=== PATIENT | male | born 1970 | race Caucasian/White ===

== ENCOUNTER 2022-07-26 20:54 | Inpatient (IN) | payer BC ==
[~2022-07-26 20:54] MED LIST: Iopamidol-370 76% 500 ML MDV (1 ML CHARGE) ONE
[2022-07-26] MEDS ORDERED: Midazolam HCl 2 mg/2 ml Vial ONE (21:06)
[2022-07-26 21:07] LABS: Analyzer IN Cardio ER; Base Excess (BEa) -11.8 mEq/L (-2.0 to +3.0); CO2 Tension 35.9 mmHg (35.0-45.0); Calcium, Ionized (arterial) 1.16 mmol/L (1.12-1.30); Carboxyhemoglobin (COHb) 0.3 gm% (0.0-3.0); Hemoglobin (Hb) 16.1 g/dL (14.0-18.0); O2 Tension (PaO2), arterial 622.6 mmHg (80.0-100.0); Potassium - ABG Lab 3.58 mmol/L (3.70-5.30); pH, Arterial 7.23 (7.35-7.45)
[2022-07-26 21:12] LABS: Actual Bicarbonate (HCO3a) 14.8 mEq/L (22-28)
[2022-07-26 21:13] LABS: ALV-art Gradient 45.525 mmHg (0-20); Puncture Site RRA
[2022-07-26] MEDS ORDERED: Fentanyl CADD 100 ML IV SCH ×2 (21:15→22:30)
[2022-07-26 21:16] LABS: #Lymphocytes 2.5 thou/uL (1.20-3.40); #Neutrophils 7.9 thou/uL (1.40-6.50); %Basophils 0.2 % (0.0-1.0); %Eosinophils 0.1 % (0.0-10.0); %Lymphocytes 21.6 % (21.0-51.0); %Monocytes 8.5 % (0.0-10.0); %Neutrophils 69.5 % (42.0-75.0); Hemoglobin 15.3 g/dL (14.0-18.0); Mean Corpuscular HGB CONC 30.8 g/dL (32.0-36.0); Mean Corpuscular Hemoglobin 26.9 pg (27.0-31.0); Mean Corpuscular Volume 87.2 fl (78.0-98.0); Mean Platelet Volume 7.1 fL (7.4-10.4); Platelet Count 303 10x3/uL (130-400); RBC Distribution Width 12.6 % (11.5-14.5); Red Blood Cell (RBC) Count 5.69 mill/uL (4.70-6.10); White Blood Cell (WBC) Count 11.4 10x3/uL (4.8-10.8)
[2022-07-26 21:26] LABS: INR-International Normal Ratio 1.1; PTT 27.7 sec (22.9-36.1); Prothrombin Time 14.2 sec (12.0-14.7)
[2022-07-26] MEDS ORDERED: hydrALAZINE 20 MG/ML VIAL SLOW IVP PRN (21:26)
[2022-07-26] MEDS ORDERED: Dextrose 50% Abboject 50 ML SYRINGE SLOW IVP PRN (21:26)
[2022-07-26] MEDS ORDERED: Dextrose 5% in Water 1,000 ML IV PRN (21:26)
[2022-07-26] MEDS ORDERED: HumaLOG 300 UNITS/3 ML VIAL SC PRN ×2 (21:26)
[2022-07-26] MEDS ORDERED: Ondansetron PF 4 MG/2 ML Vial IVP PRN (21:26)
[2022-07-26] MEDS ORDERED: FENTANYL 50 MCG/ML 1 ML VIAL ONE (21:29)
[2022-07-26] MEDS ORDERED: Sodium Chloride 0.9% 1,000 ML IV SCH (21:30)
[2022-07-26] MEDS ORDERED: Propofol 1,000 MG/100 ML VIAL IV ONE (21:32)
[2022-07-26 21:33] LABS: ALT (SGPT) 16 U/L (8-55); AST (SGOT) 12 U/L (5-34); Acetaminophen Less than 10.0 mcg/mL (10.0-30.0); Albumin 4.7 g/dL (3.5-5.0); Alcohol 195 mg/dL (Less than 10); Alkaline Phosphatase 79 U/L (40-110); Anion Gap 21 mmol/L (10-20); BUN (Urea Nitrogen) 11 mg/dL (8.4-25.7); Bilirubin, Total 0.3 mg/dL (0.2-1.2); Calc. Creatinine Clearance 0 mL/min (70-130); Calcium 8.4 mg/dL (7.8-10.44); Carbon Dioxide 11 mmol/L (22-29); Chloride 106 mmol/L (98-107); Estimated GFR 97; Globulin 2.8 g/dL (2.4-3.5); Glucose 302 mg/dL (70-105); Lipase 24 U/L (8-78); Potassium 3.7 mmol/L (3.5-5.1); Protein, Total 7.5 g/dL (6.0-8.3); Salicylate Less than 8.0 mg/dL (15.0-30.0); Sodium 134 mmol/L (136-145)
[2022-07-26] MEDS ORDERED: Dexmedetomidine In 0.9 % NaCl 100 ML IVPB SCH (22:15)
[2022-07-26] MEDS ORDERED: FENTANYL 500 MCG/10 ML VIAL 2,000 MCG in Sodium Chloride 0.9% 60 ML IV PRN (22:15)
[2022-07-26 22:32] LABS: Bilirubin Negative (Negative); Blood, Urine Negative (Negative); Clarity Clear (Clear); Glucose, Urine (Dipstick) Greater than 1000 mg/dL (Negative); Ketone, Urine 40 mg/dL (Negative); Leukocyte Negative Leu/uL (Negative); Nitrite Negative (Negative); Protein, Urine (Dipstick) 20 mg/dL (Neg-Trace); Specific Gravity, Urine 1.013 (1.002-1.036); Urobilinogen Normal mg/dL (Less than 2)
[2022-07-26] MEDS ORDERED: TETANUS, DIPHTHERIA TOX,ADULT (TDVAX) 0.5 ML VIAL IM ONE (22:42)
[2022-07-26] MEDS ORDERED: CEFAZOLIN 1 GM in Sodium Chloride 0.9% 100 ML IVPB SCH (22:42)
[2022-07-26 23:18] VITALS: BMI 22.4
[2022-07-26 23:30] LABS: Actual Bicarbonate (HCO3a) 17.5 mEq/L (22-28); Base Excess (BEa) -4.6 mEq/L (-2.0 to +3.0); CO2 Tension 25.6 mmHg (35.0-45.0); Calcium, Ionized (arterial) 1.08 mmol/L (1.12-1.30); Carboxyhemoglobin (COHb) 0.9 gm% (0.0-3.0); Hemoglobin (Hb) 14.6 g/dL (14.0-18.0); O2 Tension (PaO2), arterial 131.6 mmHg (80.0-100.0); Potassium - ABG Lab 4.26 mmol/L (3.70-5.30); pH, Arterial 7.45 (7.35-7.45)
[2022-07-26 23:32] LABS: Puncture Site RBA
[2022-07-26] MEDS: Acetaminophen 500 MG TAB PO SCH (23:51)
[2022-07-26] MEDS: Lactated Ringer's 1,000 ML IV SCH (23:51)
[2022-07-27 00:28] LABS: Amphetamine Not Detected (NotDetected); Barbiturates Screen Not Detected (NotDetected); Benzodiazepine Screen Not Detected (NotDetected); Cocaine Metabolite Screen Not Detected (NotDetected); Methadone Not Detected (NotDetected); Methamphetamine Not Detected (NotDetected); Opiate Screen Not Detected (NotDetected); Oxycodone Screen Not Detected (NotDetected); Phencyclidine (PCP) Not Detected (NotDetected); THC/Cannabinoid Screen Not Detected (NotDetected); Tricyclic Screen Not Detected (NotDetected)
[2022-07-27 00:58] LABS: Glucose 133 mg/dL (70-105)
[2022-07-27 00:59] LABS: Lactic Acid 2.1 mmol/L (0.5-2.2)
[2022-07-27] MEDS ORDERED: Calcium Chloride 1 GM/10 ML Abboject SYRINGE IVP SCH (01:30)
[2022-07-27 03:34] LABS: #Lymphocytes 4.5 thou/uL (1.20-3.40); #Monocytes 0.9 thou/uL (0.11-0.59); #Neutrophils 5.7 thou/uL (1.40-6.50); %Basophils 0.3 % (0.0-1.0); %Eosinophils 0.3 % (0.0-10.0); %Lymphocytes 40.4 % (21.0-51.0); %Monocytes 7.6 % (0.0-10.0); %Neutrophils 51.3 % (42.0-75.0); Hemoglobin 12.5 g/dL (14.0-18.0); Mean Corpuscular HGB CONC 33.8 g/dL (32.0-36.0); Mean Corpuscular Hemoglobin 28.7 pg (27.0-31.0); Mean Corpuscular Volume 84.9 fl (78.0-98.0); Mean Platelet Volume 7.1 fL (7.4-10.4); Platelet Count 220 10x3/uL (130-400); RBC Distribution Width 12.6 % (11.5-14.5); Red Blood Cell (RBC) Count 4.36 mill/uL (4.70-6.10); White Blood Cell (WBC) Count 11.1 10x3/uL (4.8-10.8)
[2022-07-27 03:44] LABS: Phosphorus 3.8 mg/dL (2.3-4.7)
[2022-07-27 03:50] LABS: INR-International Normal Ratio 1.1; PTT 28.5 sec (22.9-36.1)
[2022-07-27 03:51] LABS: Lactic Acid 1.9 mmol/L (0.5-2.2)
[2022-07-27 03:56] LABS: Glucose 82 mg/dL (70-105); Magnesium 1.9 mg/dL (1.6-2.6)
[2022-07-27 03:58] LABS: Anion Gap 15 mmol/L (10-20); BUN (Urea Nitrogen) 9 mg/dL (8.4-25.7); Calc. Creatinine Clearance 119 mL/min (70-130); Calcium 10.6 mg/dL (7.8-10.44); Carbon Dioxide 16 mmol/L (22-29); Chloride 112 mmol/L (98-107); Estimated GFR 108; Glucose 82 mg/dL (70-105); Potassium 3.7 mmol/L (3.5-5.1); Sodium 139 mmol/L (136-145)
[2022-07-27] MEDS: Acetaminophen 500 MG TAB PO SCH ×4 (05:47→23:39)
[2022-07-27] MEDS: Lactated Ringer's 1,000 ML IV SCH (08:00)
[2022-07-27] MEDS: Famotidine/PF 20 mg/2ml Vial SLOW IVP SCH ×2 (08:00→21:21)
[2022-07-27] MEDS: Ipratropium/Albuterol 3 ML NEB NEB SCH ×3 (08:04→19:24)
[2022-07-27] MEDS: Morphine 2 MG/ML VIAL SLOW IVP PRN ×2 (13:25→19:56)
[2022-07-27] MEDS ORDERED: Lactated Ringer's 1,000 ML IV SCH (15:00)
[2022-07-27] MEDS ORDERED: Lorazepam 1 MG TAB PO SCH (18:42)
[2022-07-27] MEDS: Oxazepam 10 MG CAP PO SCH (21:21)
[2022-07-28] MEDS: Acetaminophen 500 MG TAB PO SCH ×4 (06:12→23:55)
[2022-07-28] MEDS: Oxazepam 10 MG CAP PO SCH ×3 (06:13→21:00)
[2022-07-28] MEDS: Ipratropium/Albuterol 3 ML NEB NEB SCH ×2 (08:41→14:22)
[2022-07-28] MEDS ORDERED: FLU VACC QS2022-23(6MO UP)/PF 60 MCG/0.5 ML SYRINGE IM ONE (09:00)
[2022-07-28] MEDS: Folic Acid 1 MG TAB PO SCH (09:22)
[2022-07-28] MEDS: Citalopram 10 MG TAB PO SCH (09:22)
[2022-07-28] MEDS: Famotidine 20 MG TAB PO SCH ×2 (09:22→21:00)
[2022-07-28] MEDS: Thiamine 100 MG TAB PO SCH (09:22)
[2022-07-28] MEDS: Morphine 2 MG/ML VIAL SLOW IVP PRN (09:25)
[2022-07-28] MEDS ORDERED: traMADol HCl 50 MG TAB PO PRN (09:38)
[2022-07-28] MEDS: traMADol HCl 50 MG TAB PO SCH ×3 (11:47→23:56)
[2022-07-28] MEDS: Albuterol 200 PUFF (6.7GM INHALER) INH SCH ×2 (13:55→19:12)
[2022-07-28] MEDS: Ipratropium 200 Puff Oral Inhaler INH SCH ×2 (16:24→19:13)
[2022-07-28] MEDS ORDERED: Melatonin 3 MG TAB PO PRN (18:07)
[2022-07-28] MEDS: Senokot 8.6 MG TAB PO SCH (21:04)
[2022-07-28 22:02] LABS: SARS-CoV-2 NAA Rapid Test Not Detected (NotDetected)
[2022-07-29] MEDS: Oxazepam 10 MG CAP PO SCH ×3 (05:43→20:46)
[2022-07-29] MEDS: Acetaminophen 500 MG TAB PO SCH ×4 (05:43→23:36)
[2022-07-29] MEDS: traMADol HCl 50 MG TAB PO SCH ×4 (05:44→23:38)
[2022-07-29] MEDS: Ipratropium 200 Puff Oral Inhaler INH SCH ×3 (06:38→19:33)
[2022-07-29] MEDS: Albuterol 200 PUFF (6.7GM INHALER) INH SCH ×3 (06:38→19:33)
[2022-07-29] MEDS: Senokot 8.6 MG TAB PO SCH ×2 (09:05→20:46)
[2022-07-29] MEDS: Polyethylene Glycol 3350 17 GM Packet PO SCH (09:05)
[2022-07-29] MEDS: Famotidine 20 MG TAB PO SCH ×2 (09:05→20:46)
[2022-07-29] MEDS: Citalopram 10 MG TAB PO SCH (09:05)
[2022-07-29] MEDS: Thiamine 100 MG TAB PO SCH (09:05)
[2022-07-29] MEDS: Folic Acid 1 MG TAB PO SCH (09:06)
[2022-07-30] MEDS ORDERED: QUEtiapine 25 MG TAB PO SCH (00:45)
[2022-07-30] MEDS ORDERED: diphenhydrAMINE 50 MG/ML VIAL IVP SCH (00:45)
[2022-07-30] MEDS: traMADol HCl 50 MG TAB PO SCH ×2 (05:44→11:46)
[2022-07-30] MEDS: Oxazepam 10 MG CAP PO SCH (05:46)
[2022-07-30] MEDS: Acetaminophen 500 MG TAB PO SCH ×2 (05:46→11:46)
[2022-07-30] MEDS: Albuterol 200 PUFF (6.7GM INHALER) INH SCH ×2 (08:23→13:51)
[2022-07-30] MEDS: Ipratropium 200 Puff Oral Inhaler INH SCH ×2 (08:23→13:52)
[2022-07-30] MEDS: Citalopram 10 MG TAB PO SCH (08:54)
[2022-07-30] MEDS: Polyethylene Glycol 3350 17 GM Packet PO SCH (08:54)
[2022-07-30] MEDS: Thiamine 100 MG TAB PO SCH (08:54)
[2022-07-30] MEDS: Senokot 8.6 MG TAB PO SCH (08:54)
[2022-07-30] MEDS: Famotidine 20 MG TAB PO SCH (08:54)
[2022-07-30] MEDS: Folic Acid 1 MG TAB PO SCH (08:54)
[2022-07-30 11:52] VITALS: BP 97/59; TEMP 98.3
== END 2022-07-30 13:45 | disposition home or self-care (01) | DRG 922 ==
LOC: ERS 20:54 → CCU 21:26 → SJJU 07-27 18:00
PROVIDERS: ADMIT Surgery; ATTEND Surgery
PROC: 5A1935Z Respiratory Ventilation, Less than 24 Consecutive Hours (ICD-10-PCS; principal; 2022-07-26)
DX: T71.162A Asphyxiation due to hanging, intentional self-harm, initial encounter (principal); J96.00 Acute respiratory failure, unspecified whether with hypoxia or hypercapnia; X83.8XXA Intentional self-harm by other specified means, initial encounter; E87.6 Hypokalemia; E83.39 Other disorders of phosphorus metabolism; E83.42 Hypomagnesemia; S31.119A Laceration without foreign body of abdominal wall, unspecified quadrant without penetration into peritoneal cavity, initial encounter; M48.02 Spinal stenosis, cervical region; F10.129 Alcohol abuse with intoxication, unspecified; Y90.6 Blood alcohol level of 120-199 mg/100 ml; Z20.822 Contact with and (suspected) exposure to COVID-19
CPT/HCPCS: 36415; 36416; 36600; 70496; 70498; 71045; 71260; 72125; 72141; 74177; 80053; 80306; 80307; 81003; 82805; 82947; 83605; 83690; 83735; 84100; 84484; 85025; 85610; 85730; 86850; 86900; 86901; 90714; 93005; 93010; 94002; 94003; 94640; 94760; 96365; 96368; G0390; J0690; J1200; J1815; J2250; J2272; J2704; J3010; J3490; J7120; J7620; P9045; Q9967; S0028; U0002